=== PATIENT | female | born 1990 | race Caucasian/White ===

== ENCOUNTER 2016-03-25 15:31 | Inpatient (IN) | payer MEDICAID ==
[2016-03-25] MEDS ORDERED: LACTATED RINGER'S 1000 ML INJ 1,000 ML IV PRN (17:28)
[2016-03-25] MEDS ORDERED: LIDOCAINE HCL 1% 50 ML VIAL INFIL PRN (17:30)
[2016-03-25] MEDS ORDERED: ONDANSETRON HCL 4 MG/2 ML VIAL IV PRN (17:30)
[2016-03-25] MEDS ORDERED: OXYTOCIN 30 UNITS-500ML PREMIX 500 ML IV ONE (17:30)
[2016-03-25] MEDS ORDERED: CITRIC ACID-SODIUM CITRATE LIQ 30 ML UDC PO SCH (17:30)
[2016-03-25] MEDS ORDERED: LIDOCAINE HCL 1% 50 ML VIAL I-DERMAL PRN (17:30)
[2016-03-25] MEDS ORDERED: DINOPROSTONE 10 MG VAG INSERT VAGINAL ONE (17:30)
[2016-03-25] MEDS ORDERED: SODIUM CHLORID 0.9% 500 ML INJ 500 ML IV PRN (17:30)
[2016-03-25] MEDS ORDERED: MINERAL OIL 10 ML VIAL TOPICAL PRN (17:30)
[2016-03-25 17:38] LABS: BASOPHIL % 0.2 % (0.0-2.0); EOSINOPHIL % 0.2 % (0.0-4.0); HEMATOCRIT 36.3 % (35.0-46.0); HEMO FLAGS DIFF FINAL; LYMPH % 10.6 % (9.0-44.0); LYMPHOCYTE # 1.1 TH/MM3 (1.0-4.8); MEAN CELL VOLUME 83.6 FL (80.0-100.0); MEAN CORPUSCULAR HGB CONC 34.6 % (32.0-36.0); MONO % 5.4 % (0.0-8.0); NEUT % 83.6 % (16.0-70.0); PLATELET COUNT 205 TH/MM3 (150-450); RED BLOOD COUNT 4.34 MIL/MM3 (4.00-5.30); RED CELL DISTRIBUTION WIDTH 13.3 % (11.6-17.2); WHITE BLOOD COUNT 10.7 TH/MM3 (4.0-11.0)
[2016-03-25] MEDS ORDERED: SODIUM CHLOR 0.9% 1000 ML INJ 1,000 ML IV PRN (17:48)
--- NOTE | 2016-03-25 17:51 | HHI.HP ---
HPI Chief Complaint iol Travel History International Travel<30 Days: No Contact w/Intl Traveler<30Days: No Known Affected Area: No History of Present Illness HPI PT is a 25 yo with iup at 39 w c/b gestational dm, suspected macrosomia. She had an u/s at 37 wk noting baby in 95%ile. Given efw, pt discussed iol with dr medrano at that visit. She is aware that there is an increased risk of cd. She has had good glycemic control. Weight gain of 50lb this . NST in clinic reactive yesterday, ctx q 4minutes. sve /-2 . Para: 0 : 2 : 1 History Past Medical History Medical History: Denies Significant Hx Obstetric History Obstetric History eab d&c Past Surgical History Narrative Surgical wisdom teeth removal, D&C Family History Family History: Negative Social History Alcohol Use: No Tobacco Use: No Substance Abuse: No (prior mj use) Allergies-Medications (Allergen,Severity, Reaction): Coded Allergies: No Known Allergies (Unverified , 12/28/15) Home Meds No Active Prescriptions or Reported Meds Review of Systems General / Constitutional: No: Fever, Weight Gain, Chills, Other Eyes: No: Diploplia, Blurred Vision, Visual changes, Pain, Photophobia HENT: No: Headaches, Vertigo, Lightheadedness Cardiovascular: No: Irregular Rhythm, Chest Pain or Discomfort, Palpitations, Tachycardia, Syncope, Varicosities, Edema, Cyanosis Respiratory: No: Cough, Short of Breath, Other Gastrointestinal: No: Nausea, Vomiting, Diarrhea Genitourinary: No: Decreased Urinary Output, Oliguria Musculoskeletal: No: Limited ROM, Weakness, Cramping, Edema, Pain Skin: No Rash, No Itching, No Dryness, No Lumps, No Change in Pigmentation, No Change in Nails, No Alopecia, No Lesions Neurologic: No: Weakness, Dizziness, Syncope, Focal Abnormalities, Coordination Problem, Headache, Slurred Speech, Seizures Psychiatric: No: Depression, Suicidal Ideations, Homicidal Ideation Endocrine: No: Heat Intolerance, Cold Intolerance, Polydipsia, Polyuria, Other Physical Exam Narrative GENERAL: Well-nourished, well-developed patient. SKIN: Warm and dry. HEAD: Normocephalic and atraumatic. EYES: No scleral icterus. No injection or drainage. ENT: No nasal drainage noted. Mucous membranes pink. Airway patent. NECK: Supple, trachea midline. No JVD. CARDIOVASCULAR: Regular rate and rhythm without murmurs, gallops, or rubs. RESPIRATORY: Breath sounds equal bilaterally. No accessory muscle use. ABDOMEN/GI: Abdomen soft, non-tender, bowel sounds present, no rebound, no guarding Gravid to 40 weeks size GENITOURINARY: External Genitalia: intact and normal in appearance Cervix: 2/50/-2 Presentation:[facility] Membranes: [intact Uterine Contractions:2-5min FHT's: Category:1 Baseline: 120 Reactive:y Variability:mod Decels: [-] EXTREMITIES: No cyanosis or edema. BACK: Nontender without obvious deformity. No CVA tenderness. NEUROLOGICAL: Awake and alert. Motor and sensory grossly within normal limits. Five out of 5 muscle strength in all muscle groups. Normal speech. Data Data Vital Signs Reviewed: Yes Orders Admit To Inpatient (03/25/16 ) Vital Signs (Adult) .Per protocol (03/25/16 17:28) Activity Oob Ad Glenys (03/25/16 17:28) ^ Heart (03/25/16 17:28) ^ Amnioinfusion (03/25/16 17:28) Urinary Catheter Management .ONCE (03/25/16 17:28) Diet Liquid (03/25/16 Dinner) Lactated Ringer's 1000 Ml Inj (Lr 1000 M (03/25/16 17:28) Lactated Ringer's 1000 Ml Inj (Lr 1000 M (03/25/16 17:28) Sodium Chlorid 0.9% 500 Ml Inj (Ns 500 M (03/25/16 17:30) Sodium Chlor 0.9% 1000 Ml Inj (Ns 1000 M (03/25/16 17:48) Lidocaine 1% Inj (50 Ml) (Xylocaine 1% I (03/25/16 17:30) Citric Acid-Sodium Citrate Liq (Bicitra (03/25/16 17:30) Ondansetron Inj (Zofran Inj) (03/25/16 17:30) Fentanyl Inj (Fentanyl Inj) (03/25/16 17:30) Fentanyl Inj (Fentanyl Inj) (03/25/16 17:30) Complete Blood Count With Diff (03/25/16 17:28) Hold Clot (03/25/16 17:28) Abo/Rh Blood Type (03/25/16 17:28) Urinalysis - C+S If Indicated (03/25/16 17:28) Resp Oxygen Non Rebreathe Mask (03/25/16 ) ^ Epidural / Intrathecal Infus (03/25/16 17:28) Oxytocin 30 Units-500ml Premix (Pitocin (03/25/16 17:30) Lidocaine 1% Inj (50 Ml) (Xylocaine 1% I (03/25/16 17:30) Light Mineral Oil (Muri-Lube Oil) (03/25/16 17:30) ^ Labor Induction (03/25/16 17:28) ^ Vaginal Insert (03/25/16 17:28) ^ Vaginal Lavage (03/25/16 17:28) ^ Heart (03/25/16 17:28) Dinoprostone Vag Insert (Cervidil Vag In (03/25/16 17:30) Inpatient Certification (03/25/16 ) Specimen To Be Collected PRN (03/25/16 17:28) ^ Non Stress Test (03/25/16 17:30) Response To Medication .Post New Med Administration, Reaction (03/25/16 17:30) ^ Discontinue Medication (03/25/16 17:30) Oxytocin 30 Units-500ml Premix (Pitocin (03/26/16 07:00) Assessment/Plan Problem List: (1) Gestational diabetes mellitus (GDM) Assessment and Plan 25 yo with iup at 39 wk with suspected macrosomia. She has gdm with good control. She will start induction with cervidil. She is aware of increased risk of cd. GDM- will monitor accucheck GBS negative fetus- cat I tracing, EFW in 95%ile, cephalic Carole Plata MD Mar 25, 2016 17:51
[2016-03-25 18:00] LABS: BACTERIA, URINE OCC /hpf; BLOOD, URINE TRACE (NEG); CALCIUM OXALATE CRYSTALS,URINE FEW /hpf; COMMENT (UR) CULT NOT INDICATED; CULTURE IF INDICATED CULT NOT INDICATED; GLUCOSE,URINE NEG (NEG); KETONE, URINE NEG (NEG); MUCUS URINE FEW /lpf (OCC); NITRITE,URINE NEG (NEG); SQUAMOUS EPITHELIAL CELL URINE 63 /hpf (0-5); URINE COLOR YELLOW (YELLW/STRAW)
[2016-03-25] MEDS ORDERED: OXYTOCIN 30 UNITS-500ML PREMIX 500 ML IV SCH (18:45)
[2016-03-25 18:50] VITALS: BP 119/69; PULSE 92
[2016-03-25 18:51] VITALS: RESP 16
[2016-03-25] MEDS: LACTATED RINGER'S 1000 ML INJ 1,000 ML IV SCH (18:51)
[2016-03-25 18:52] VITALS: TEMP 98.4
[2016-03-25] MEDS ORDERED: fentaNYL 2MCG-BUPIV 0.125% INJ 100 ML ONE (21:08)
[2016-03-25 21:45] VITALS: TEMP 98.7
[2016-03-25] MEDS ORDERED: fentaNYL 2MCG-BUPIV 0.125% INJ 100 ML EPIDURAL SCH (22:15)
[2016-03-25] MEDS ORDERED: DO NOT ADMINISTER ANTICOAGULANTS XX PRN (22:15)
[2016-03-25] MEDS ORDERED: NO SYSTEM NARCOTICS XX PRN (22:15)
[2016-03-25] MEDS ORDERED: ePHEDrine/NS 50 MG/5 ML SYR IV PRN (22:15)
[2016-03-26] VITALS (32 sets, daily range): BP systolic 101–139; BP diastolic 12–94; PULSE 18–145; RESP 16–20; TEMP 98.3–98.6
[2016-03-26] MEDS ORDERED: OXYTOCIN 30 UNITS-500ML PREMIX 500 ML IV SCH (07:00)
--- NOTE | 2016-03-26 10:23 | PD.OB.DELI ---
Delivery Date: Mar 26, 2016 Anesthesia: Epidural Episiotomy: Midline Vaginal Delivery: Normal Presentation: Compound (left hand), Vertex Nuchal Cord: Other (body cord) : Female One Minute : 9 Five Minute : 9 Weight: 7#9oz Infant Care: Spontaneous crying, Responded to stimulation Placenta: Spontaneous delivery Laceration: Episiotomy (midline 2nd degree) Repair: Chromic running Additional Information EBL 200 mL Liliana Roberts MD Mar 26, 2016 10:23
[2016-03-26] MEDS ORDERED: WITCH HAZEL 50%/GLYCERIN 12.5% 40 PAD JAR TOPICAL PRN (10:30)
[2016-03-26] MEDS ORDERED: ALUMINUM/MAGNESIUM/SIMETH 30 ML CUP PO PRN (10:30)
[2016-03-26] MEDS ORDERED: DOCUSATE SODIUM 50 MG/SENNA 8.6 MG TAB PO PRN (10:30)
[2016-03-26] MEDS ORDERED: oxyCODONE/ACETAMINOPHEN 5 MG/325 MG TAB PO PRN ×2 (10:30)
[2016-03-26] MEDS ORDERED: SODIUM CHLORIDE 0.9% FLUSH 5 ML FLUSH IV PRN (10:30)
[2016-03-26] MEDS ORDERED: ONDANSETRON ODT 4 MG TAB PO PRN (10:30)
[2016-03-26] MEDS ORDERED: ACETAMINOPHEN 325 MG TAB PO PRN (10:30)
[2016-03-26] MEDS ORDERED: BENZOCAINE 20% TOPICAL SPRAY 60 ML CAN TOPICAL PRN (10:30)
[2016-03-26] MEDS: IBUPROFEN 600 MG TAB PO PRN (15:25)
[2016-03-26] MEDS ORDERED: DIPHTH/TETANUS/ACEL PERTUSSIS (BOOSTER) 0.5 ML VIAL/PFS IM ONE (16:00)
[2016-03-26] MEDS ORDERED: MEASLES, MUMPS, RUBELLA VACCINE 0.5 ML VIAL SQ ONE (16:00)
--- NOTE | 2016-03-26 16:58 | HHI.DCPOC ---
Discharge Care Plan Diagnosis: (1) (spontaneous vaginal delivery) Your Health Problems Are: Vaginal delivery Report Symptoms to Your Doctor -Temperate above 100.5 degrees -Redness, of incision or excessive or foul smelling drainage -Unusual pain or calf pain -Increased vaginal bleeding -Painful or difficulty urinating -Feelings of extreme sadness or anxiety after 2 weeks Goals to Promote Your Health * To prevent worsening of your condition and complications * To maintain your health at the optimal level Directions to Meet Your Goals Take your medications as prescribed Follow your dietary instruction Follow activity as directed Ensure plenty of rest for recovery Drink fluids for hydration Keep your appointments as scheduled Take your immunizations and boosters as scheduled If your symptoms worsen call your PCP, if no PCP go to Urgent Care Center or Emergency Room Smoking is Dangerous to Your Health. Avoid second hand smoke Call the 24-hour crisis hotline for domestic abuse at Liliana Roberts MD Mar 26, 2016 16:58
[2016-03-26] MEDS ORDERED: ZOLPIDEM TARTRATE 5 MG TAB PO PRN (21:00)
[2016-03-26] MEDS ORDERED: SODIUM CHLORIDE 0.9% FLUSH 5 ML FLUSH IV SCH (21:00)
[2016-03-26 22:41] LABS: AMPHETAMINE, URINE NEG (NEG); BARBITURATES, URINE NEG (NEG); COCAINE, URINE NEG (NEG)
[2016-03-27] MEDS: IBUPROFEN 600 MG TAB PO PRN ×3 (01:11→17:24)
[2016-03-27 07:10] VITALS: BP 117/78; PULSE 100; RESP 18; TEMP 98.3
[2016-03-27] MEDS ORDERED: IBUP-232 PO (10:15)
--- NOTE | 2016-03-27 10:15 | HHI.OB ---
Subjective Post Day: 1 Remarks s/p of full term healthy female "Rosenda" Objective Vitals/I&O Vital Signs Date Time Temp Pulse Resp B/P Pulse Ox O2 Delivery O2 Flow Rate FiO2 03/27/16 07:10 100 18 117/78 03/27/16 07:10 98.3 03/26/16 15:20 18 03/26/16 13:00 120/68 03/26/16 13:00 98.4 100 20 03/26/16 12:05 98.3 03/26/16 12:01 87 18 117/71 03/26/16 11:30 121 115/71 03/26/16 11:05 18 03/26/16 11:00 110 112/70 03/26/16 10:50 110 20 113/76 03/26/16 10:50 18 03/26/16 10:30 107 119/75 03/26/16 10:23 110 18 105/67 03/26/16 10:22 124/94 03/26/16 10:21 145 113/12 Objective Remarks GENERAL: Well-nourished, well-developed patient. CARDIOVASCULAR: Regular rate and rhythm without murmurs, gallops, or rubs. RESPIRATORY: Breath sounds equal bilaterally. No accessory muscle use. ABDOMEN/GI: Abdomen soft, non-tender. Fundus: Firm, non-tender at umbilicus. GENITOURINARY: Light to moderate bleeding. EXTREMITIES: No cyanosis or edema, non-tender, without signs of DVT. Medications and IVs Current Medications Medications (Trade) Dose Ordered Sig/Dario Route Start Time Stop Time Status Last Admin (NS Flush) 2 ml BID IV 03/26/16 21:00 (NS Flush) 2 ml UNSCH PRN IV 03/26/16 10:30 (Tylenol) 650 mg Q4H PRN PO 03/26/16 10:30 (Motrin) 600 mg Q6H PRN PO 03/26/16 10:30 03/27/16 09:58 (Percocet 5-325 Mg) 1 tab Q4H PRN PO 03/26/16 10:30 (Percocet 5-325 Mg) 2 tab Q4H PRN PO 03/26/16 10:30 (Americaine 20% Top Spr) 1 spray Q4H PRN TOPICAL 03/26/16 10:30 03/26/16 17:33 (Tucks Pads) 1 applic QID PRN TOPICAL 03/26/16 10:30 03/26/16 17:33 (Celia-Colace) 2 tab Q12H PRN PO 03/26/16 10:30 03/26/16 15:26 (Ambien) 5 mg HS PRN PO 03/26/16 21:00 (Mag-Al Plus Susp Liq) 15 ml Q8H PRN PO 03/26/16 10:30 (Zofran Odt) 4 mg Q6H PRN PO 03/26/16 10:30 Assessment/Plan Problem List: (1) Gestational diabetes mellitus (GDM) Assessment and Plan 25 yo s/p at 39 wk, induced for GDM, diet controlled doing well, supportive care anticipate d/c to home tmrw 03/28/16 Discharge Planning routine Liliana Roberts MD Mar 27, 2016 10:15
[2016-03-28] MEDS: IBUPROFEN 600 MG TAB PO PRN ×2 (01:14→08:08)
--- NOTE | 2016-03-28 08:28 | HHI.OB ---
Subjective Post Day: 2 Remarks no complaints Objective Objective Remarks GENERAL: Well-nourished, well-developed patient. CARDIOVASCULAR: Regular rate and rhythm without murmurs, gallops, or rubs. RESPIRATORY: Breath sounds equal bilaterally. No accessory muscle use. ABDOMEN/GI: Abdomen soft, non-tender. Fundus: Firm, non-tender at umbilicus. GENITOURINARY: Light to moderate bleeding. EXTREMITIES: No cyanosis or edema, non-tender, without signs of DVT. Medications and IVs Current Medications Medications (Trade) Dose Ordered Sig/Dario Route Start Time Stop Time Status Last Admin (NS Flush) 2 ml BID IV 03/26/16 21:00 (NS Flush) 2 ml UNSCH PRN IV 03/26/16 10:30 (Tylenol) 650 mg Q4H PRN PO 03/26/16 10:30 (Motrin) 600 mg Q6H PRN PO 03/26/16 10:30 03/28/16 08:08 (Percocet 5-325 Mg) 1 tab Q4H PRN PO 03/26/16 10:30 (Percocet 5-325 Mg) 2 tab Q4H PRN PO 03/26/16 10:30 (Americaine 20% Top Spr) 1 spray Q4H PRN TOPICAL 03/26/16 10:30 03/26/16 17:33 (Tucks Pads) 1 applic QID PRN TOPICAL 03/26/16 10:30 03/26/16 17:33 (Celia-Colace) 2 tab Q12H PRN PO 03/26/16 10:30 03/26/16 15:26 (Ambien) 5 mg HS PRN PO 03/26/16 21:00 (Mag-Al Plus Susp Liq) 15 ml Q8H PRN PO 03/26/16 10:30 (Zofran Odt) 4 mg Q6H PRN PO 03/26/16 10:30 Assessment/Plan Problem List: (1) Gestational diabetes mellitus (GDM) Assessment and Plan 25 yo s/p at 39 wk, induced for GDM, diet controlled doing well, supportive care anticipate d/c to home 03/28/16 Discharge Planning routine Carole Plata MD Mar 28, 2016 08:28
[2016-04-02 09:50] LABS: BATH SALTS (MDPV) UR NEG (NEG); ECSTASY (MDMA) UR NEG (NEG); HEROIN (6-ACETYLMORPHINE) UR NEG (NEG); K2 SPICE UR NEG (NEG); OBMETHADONE UR NEG (NEG); OXYCODONE (PERCODAN) NEG (NEG); PHENCYCLIDINE URINE NEG (NEG)
== END 2016-03-28 11:15 | disposition home or self-care (01) | DRG 775 ==
LOC: H2EA 15:31 → H1EA 03-26 12:19
PROVIDERS: ADMIT Obstetrics & Gynecology; ATTEND Obstetrics & Gynecology
PROC: 10907ZC Drainage of Amniotic Fluid, Therapeutic from Products of Conception, Via Natural or Artificial Opening (ICD-10-PCS; 2016-03-25)
PROC: 00HU33Z Insertion of Infusion Device into Spinal Canal, Percutaneous Approach (ICD-10-PCS; 2016-03-25)
PROC: 3E0R3CZ (ICD-10-PCS; 2016-03-25)
PROC: 10E0XZZ Delivery of Products of Conception, External Approach (ICD-10-PCS; principal; 2016-03-26)
PROC: 0W8NXZZ Division of Female Perineum, External Approach (ICD-10-PCS; 2016-03-26)
DX: O24.420 Gestational diabetes mellitus in childbirth, diet controlled (principal); O32.6XX0 Maternal care for compound presentation, not applicable or unspecified; O69.82X0 Labor and delivery complicated by other cord entanglement, without compression, not applicable or unspecified; Z37.0 Single live birth; Z3A.39 39 weeks gestation of pregnancy
CPT/HCPCS: 59025; 80301; 80324; 80352; 80354; 80356; 80358; 80371; 81001; 83992; 85025; 86900; 86901; G0479; G0480; G0481; J2590; J7120